=== PATIENT | female | born 1970 | race African-American/Black ===

== ENCOUNTER 2018-06-20 20:38 | Emergency (ER) | payer SELFPAY ==
[~2018-06-20] VITALS: Ht 149.9 cm; Wt 46.7 kg
--- NOTE | 2018-06-20 21:57 | PHYS DOC ---
Past History Past Medical History: No Pertinent History Past Surgical History: Hysterectomy Smoking: Cigarettes Alcohol Use: Occasionally Drug Use: Marijuana Adult General Chief Complaint Chief Complaint: Right sided chest pain HPI HPI Patient is a 47-year-old female that presents to the emergency department complaining of chest pain for the past 9 days. She describes the pain as being on the right side of her chest as well as over her right scapula. She rates the pain as 7/10 in severity. She took some tramadol at home which helped alleviate the pain somewhat. Rubbing her chest and taking a deep breath makes the pain worse. 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 She denied having any pain that radiated out from her chest and denied any chest tightness. Review of Systems Review of Systems Constitutional: Denies fever or chills [] Eyes: Denies change in visual acuity, redness, or eye pain [] HENT: Denies nasal congestion or sore throat [] Respiratory: Denies cough or shortness of breath [] Cardiovascular: Reports chest pain, denies palpitations GI: Denies abdominal pain, nausea, vomiting, bloody stools or diarrhea [] : Denies dysuria or hematuria [] Musculoskeletal: Endorses right sided chest discomfort and right upper back pain.[] Integument: Denies rash or skin lesions [] Neurologic: Denies headache, focal weakness or sensory changes [] Complete systems were reviewed and found to be within normal limits, except as documented in this note. Physical Exam Physical Exam Constitutional: Well developed, well nourished, no acute distress, non-toxic appearance. [] HENT: Normocephalic, atraumatic, oropharynx moist, nose normal. [] Eyes: PERRL, EOMI[] Neck: Normal range of motion, no tenderness, supple, no stridor. [] Cardiovascular:Heart rate regular rhythm, no murmur [] Lungs & Thorax: Bilateral breath sounds clear to auscultation. Right sided anterior chest tenderness upon palpation and with ROM about right shoulder. Abdomen: Bowel sounds normal, soft, no tenderness, no masses, no pulsatile masses. [] Skin: Warm, dry, no erythema, no rash. [] Back: Right upper back tenderness. No CVA tenderness. [] Extremities: No tenderness, no cyanosis, no clubbing, ROM intact, no edema. [] Neurologic: Alert and oriented X 3, normal motor function, normal sensory function, no focal deficits noted. [] Psychologic: Affect normal, judgement normal, mood normal. [] EKG EKG NSR at 55bpm, nonspecific t wave inversion V2-V5, No ST elevation from 06/20/18 at 2206 Radiology/Procedures Radiology/Procedures PROCEDURE: CHEST PA & LATERAL PA and lateral chest radiograph. History: Right chest wall pain. Cough. Comparison: None. Findings: Cardiomediastinal silhouette is within normal limits for size. Bilateral lung carter appear clear without evidence of infiltrate, effusion, or pneumothorax. Impression: 1. No acute cardiopulmonary process. Electronically signed by: Carlos Bahena MD (06/20/2018 10:33 PM) [facility] Course & Med Decision Making Course & Med Decision Making Pertinent Labs and Imaging studies reviewed. (See chart for details) Patient is a 47-year-old female that presents to the emergency department complaining of chest pain for the past 9 days. She describes the pain as being on the right side of her chest as well as over her right scapula. She rates the pain as 7/10 in severity. She took some tramadol at home which helped alleviate the pain somewhat. Rubbing her chest and taking a deep breath makes the pain worse. 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 ECG and chest x-ray were ordered with no significant findings being found. Patient likely has some musculoskeletal tenderness that is likely related to her work-related physical activities. Patient was given ibuprofen in the ED and was given a script for Norflex. Patient stable for discharge with outpatient follow-up with PCP. Discussed findings and plan with patient, who acknowledges understanding and agreement. Dragon Disclaimer Dragon Disclaimer This electronic medical record was generated, in whole or in part, using a voice recognition dictation system. Departure Departure: Impression: Primary Impression: Musculoskeletal chest pain Disposition: HOME, SELF-CARE Condition: STABLE Referrals: PCP,NO (PCP) Patient Instructions: Chest Wall Pain, [id number] Orphenadrine Citrate (ORPHENADRINE CITRATE) 100 Mg Tablet.er 1 TAB PO BID PRN for MUSCLE PAIN, #14 TAB 0 Refills Prov: CARLOS BLUNT DO 06/20/18 Ibuprofen (MOTRIN IB) 200 Mg Tablet 400 MG PO TID PRN PRN for PAIN, #30 TAB Prov: CARLOS BLUNT DO 06/20/18 CARLOS BLUNT DO Jun 20, 2018 21:57
--- NOTE | 2018-06-20 22:10 | EKG ---
[address] [address] Test Date: 2018-06-20 Test Time: 22:06:32 Pat Name: NEGRO IZAGUIRRE Department: Room: Gender: F Legal Records Manager: PRECIOUS : 1970 Requested By: CARLOS BLUNT Order Number: [id number] Reading MD: Measurements Intervals [place] Rate: 55 P: 67 KS: 152 QRS: -24 QRSD: 72 T: 38 QT: 462 QTc: 444 Interpretive Statements SINUS RHYTHM LEFTWARD AXIS T ABNORMALITY IN ANTERIOR LEADS ABNORMAL ECG RI6.01 No previous ECG available for comparison
[2018-06-20] MEDS ORDERED: IBUPROFEN 400 MG TABLET. PO ONE (22:15)
[2018-06-20 22:30] VITALS: BP 124/78
[2018-06-20] MEDS ORDERED: IBUP200T44 PO (22:31)
[2018-06-20] MEDS ORDERED: ORPH-16 PO (22:31)
--- NOTE | 2018-06-20 22:37 | RAD ---
PA and lateral chest radiograph. History: Right chest wall pain. Cough. Comparison: None. Findings: Cardiomediastinal silhouette is within normal limits for size. Bilateral lung carter appear clear without evidence of infiltrate, effusion, or pneumothorax. Impression: 1. No acute cardiopulmonary process. Electronically signed by: Isaias Bahena MD (06/20/2018 10:33 PM) [facility]
== END 2018-06-20 22:41 | disposition home or self-care (01) ==
LOC: ER 20:38
DX: R07.89 Other chest pain (principal); M54.6 Pain in thoracic spine; F17.210 Nicotine dependence, cigarettes, uncomplicated
CPT/HCPCS: 71046; 93005; 99284